=== PATIENT | female | born 1995 | race American Indian/Alaskan Native ===

== ENCOUNTER 2017-06-29 00:48 | Emergency (ER) | payer SELFPAY ==
[2017-06-29 03:07] LABS: Basophils % (Auto) 0.3 % (0.0-1.8); Eosinophils % (Auto) 0.1 % (0.0-4.3); Hematocrit 41.1 % (30.3-42.9); Hemoglobin 14.2 gm/dl (10.1-14.3); Mean Corpuscular HGB Conc 35 % (30-34); Mean Corpuscular Hemoglobin 31 pg (28-32); Mean Corpuscular Volume 91 fl (79-97); Platelet Count 232 K/mm3 (140-440); Red Blood Count 4.53 M/mm3 (3.65-5.03); White Blood Count 8.5 K/mm3 (4.5-11.0)
[2017-06-29 03:16] LABS: Bacteria,Urine 1+ /HPF (Negative); Bilirubin,Urine NEG (Negative); Blood,Urine MOD (Negative); Ketones,Urine 80 mg/dL (Negative); Leukocyte Esterase,Urine TR (Negative); Mucus,Urine 3+ /HPF; Nitrite,Urine NEG (Negative); Urobilinogen,Urine < 2.0 mg/dL (<2.0)
[2017-06-29 03:21] LABS: Alanine Aminotransferase 11 units/L (7-56); Albumin 4.5 g/dL (3.9-5); Albumin/Globulin Ratio 1.1 %; Alkaline Phosphatase 48 units/L (35-129); Anion Gap 24 mmol/L; Blood Urea Nitrogen 9 mg/dL (7-17); Calcium 9.8 mg/dL (8.4-10.2); Carbon Dioxide 19 mmol/L (22-30); Chloride 98.9 mmol/L (98-107); Glucose 85 mg/dL (65-100); Lipase 18 units/L (13-60); Sodium 138 mmol/L (137-145); Total Protein 8.5 g/dL (6.3-8.2)
--- NOTE | 2017-06-29 03:21 | Ultrasound Report ---
FINAL REPORT PROCEDURE: US OB TRANSVAGINAL TECHNIQUE: Real-time transabdominal and transvaginal sonography of the uterus, placenta, amniotic fluid, adnexa, and fetus was performed with image documentation. Measurements were obtained to determine age/size. M-mode Doppler was used to document heartbeat. CPT 96227 and 09597 HISTORY: , s/p elective COMPARISON: No prior studies are available for comparison. FINDINGS: ADDITIONAL GESTATION: None. CRL: 6 mm, which corresponds to a gestational age of: 6 weeks, 3 days. Yolk Sac: Normal. Embryonic Cardiac Activity: 126 beats per minute Gestational Sac: Normal. Amniotic fluid: Normal. Cervix: Normal. Right Ovary: Normal. Left Ovary: Normal. Estimated delivery date: 02/19/2018 Uterus and adnexa: Normal. IMPRESSION: 1. Single live intrauterine gestation at approximately 6 weeks, 3 days. 2. EDC by US 02/19/2018 3. Complete anatomic survey at 18-20 weeks suggested.
--- NOTE | 2017-06-29 03:22 | Ultrasound Report ---
FINAL REPORT PROCEDURE: Ultrasound OB, transvaginal and transabdominal less than 14 weeks TECHNIQUE: Real-time transabdominal and transvaginal sonography of the uterus, placenta, amniotic fluid, adnexa, and fetus was performed with image documentation. Measurements were obtained to determine age/size. M-mode Doppler was used to document heartbeat. CPT 30600 and 48745 HISTORY: , s/p elective COMPARISON: No prior studies are available for comparison. FINDINGS: ADDITIONAL GESTATION: None. CRL: 6 mm, which corresponds to a gestational age of: 6 weeks, 3 days. Yolk Sac: Normal. Embryonic Cardiac Activity: 126 beats per minute Gestational Sac: Normal. Amniotic fluid: Normal. Cervix: Normal. Right Ovary: Normal. Left Ovary: Normal. Estimated delivery date: 02/19/2018 Uterus and adnexa: Normal. IMPRESSION: 1. Single live intrauterine gestation at approximately 6 weeks, 3 days. 2. EDC by US 02/19/2018 3. Complete anatomic survey at 18-20 weeks suggested.
[2017-06-29] MEDS ORDERED: ZOFRAN ODT PO ONE (06:26)
[2017-06-29] MEDS ORDERED: TYLENOL PO ONE (06:27)
--- NOTE | 2017-06-29 06:42 | Emergency Department Report ---
HPI - General Chief Complaint: Abdominal Pain Time Seen by Provider: 06/29/17 06:12 - HPI HPI: 22-year-old female presents to the emergency department with a complaint of abdominal pain, nausea and vomiting has been going on for the past 2-3 days. 48 hours ago the patient took a pill at a women's clinic but vomited about 15 minutes after taking the medication and was unsure if she actually got any of the medication. She believes himself to be about 7 weeks and 4 days. With this she is with one live child. She denies any vaginal bleeding. She has not taken anything else for her symptoms prior presentation. She denies any other past medical history. She does not have an actual SENIOR SOFTWARE DEVELOPER. No recent travel or sick contacts home. ED Past Medical Hx - Past Medical History Previous Medical History?: No - Surgical History Past Surgical History?: No - Social History Smoking Status: Never Smoker Substance Use Type: None - Medications Home Medications: Home Medications Medication Instructions Recorded Confirmed Last Taken Type Ondansetron [Zofran Odt] 4 mg PO Q8H PRN #10 tab.rapdis 06/29/17 Unknown Rx ED Review of Systems ROS: Stated complaint: NAUSEA,VOMITING,WEAK Other details as noted in HPI Comment: All other systems reviewed and negative Constitutional: denies: chills, fever Eyes: denies: eye pain, eye discharge, vision change ENT: denies: ear pain, throat pain Respiratory: denies: cough, shortness of breath, wheezing Cardiovascular: denies: chest pain, palpitations Gastrointestinal: abdominal pain, nausea, vomiting Genitourinary: denies: urgency, dysuria, discharge Musculoskeletal: denies: back pain, joint swelling, arthralgia Skin: denies: rash, lesions Neurological: denies: headache, weakness, paresthesias Physical Exam - Physical Exam Vital Signs: Vital Signs 06/29/17 06/29/17 06/29/17 02:05 05:38 05:39 Temperature 98.3 F Pulse Rate 87 86 Respiratory 18 18 18 Rate Blood Pressure 127/82 Blood Pressure 131/94 [Left] O2 Sat by Pulse 99 100 100 Oximetry Physical Exam: GENERAL: The patient is well-developed well-nourished. HENT: Normocephalic. Atraumatic. Patient has moist mucous membranes. EYES: Extraocular motions are intact. Pupils equal reactive to light bilaterally. NECK: Supple. Trachea is midline. CHEST/LUNGS: Clear to auscultation. There is no respiratory distress noted. HEART/CARDIOVASCULAR: Regular. There is no tachycardia. There is no gallop rub or murmur. ABDOMEN: Abdomen is soft, nontender. Patient has normal bowel sounds. There is no abdominal distention. SKIN: Skin is warm and dry. NEURO: The patient is awake, alert, and oriented. The patient is cooperative. The patient has no focal neurologic deficits. The patient has normal speech. MUSCULOSKELETAL: There is no tenderness or deformity. There is no limitation range of motion. There is no evidence of acute injury. ED Course Vital Signs 06/29/17 06/29/17 06/29/17 02:05 05:38 05:39 Temperature 98.3 F Pulse Rate 87 86 Respiratory 18 18 18 Rate Blood Pressure 127/82 Blood Pressure 131/94 [Left] O2 Sat by Pulse 99 100 100 Oximetry ED Medical Decision Making - Lab Data Result diagrams: 06/29/17 02:22 06/29/17 02:22 - Radiology Data Radiology results: report reviewed /transvaginal ultrasound shows a live intrauterine at 6 weeks and 3 days. - Medical Decision Making 22-year-old female presents to the emergency department 2 days after taking a oral treatment at a women's clinic with nausea, vomiting and some abdominal discomfort. Ultrasound shows a live intrauterine at 6 weeks and 3 days showing the patient had a failed attempt. Patient appears to be resting comfortably at this time. She has been drinking water throughout her ER stay has been keeping it down. She was given some Tylenol and some Zofran. Labs are grossly unremarkable but there are some signs of dehydration with multiple ketones in the urine. She is able to orally rehydrate herself and therefore appears safe for discharge home at this time. The patient is aware of the imaging findings and the diagnosed failed attempt. She was given a referral for [employer]IOR SOFTWARE DEVELOPER or encouraged to return to the women's clinic for further evaluation. Vital signs stable throughout her ED course. - Differential Diagnosis , threatened miscarriage, spontaneous miscarriage, fibroids Critical Care Time: No Critical care attestation.: If time is entered above; I have spent that time in minutes in the direct care of this critically ill patient, excluding procedure time. ED Disposition Clinical Impression: Failed attempted , Dehydration Qualifiers: Weeks of gestation: less than 8 weeks Qualified Code(s): Z3A.01 - Less than 8 weeks gestation of Nausea & vomiting Qualifiers: Vomiting type: unspecified Vomiting Intractability: non-intractable Qualified Code(s): R11.2 - Nausea with vomiting, unspecified Disposition: TO HOME OR SELFCARE Is pt being admited?: No Condition: Stable Instructions: (ED), Abdominal Pain (ED) Additional Instructions: Please follow up with the women's clinic or an S[employer]IOR SOFTWARE DEVELOPER regarding your failed attempt and current . Return to the emergency Department with any worsening of her symptoms or any acute distress. Increase your oral rehydration. Prescriptions: Ondansetron [Zofran Odt] 4 mg PO Q8H PRN #10 tab.rapdis PRN Reason: Nausea Referrals: PRIMARY CARE [Primary Care Provider] - 3-5 Days [facility] [Provider Group] - 3-5 Days Time of Disposition: 07:24
[2017-06-29 07:56] VITALS: BP 140/52
== END 2017-06-29 07:57 | disposition home or self-care (01) ==
LOC: ED 00:48
DX: O26.891 Other specified pregnancy related conditions, first trimester (principal); E86.0 Dehydration; Z3A.01 Less than 8 weeks gestation of pregnancy
CPT/HCPCS: 36415; 76801; 76817; 80053; 81001; 81025; 83690; 85025; 99284; Q0162